=== PATIENT | male | born 1960 | race Hispanic/Latino ===

== ENCOUNTER 2018-03-14 12:20 | Inpatient (IN) | payer BC ==
[2018-03-14] VITALS (37 sets, daily range): BP systolic 114–169; BP diastolic 60–127
[~2018-03-14] VITALS: Ht 165.1 cm; Wt 81.6 kg
[2018-03-14] MEDS ORDERED: LORATADINE10 MG PO (12:56)
[2018-03-14] MEDS ORDERED: CEPHALEXIN500 MG PO (12:56)
[2018-03-14] MEDS ORDERED: DICLOFENAC POTA50 MG PO (12:56)
[2018-03-14] MEDS ORDERED: HEPARIN SOD (PORCINE) 5,000 UNIT/ML VIAL IV ONE (13:15)
[2018-03-14 13:16] LABS: BASOPHILS # (AUTO) 0.1 (0.0-0.1); BASOPHILS % 0.4 % (0.0-1.0); EOSINOPHILS # (AUTO) 0.4 (0.0-0.4); EOSINOPHILS % 2.8 % (0.0-6.0); HEMATOCRIT 41.9 % (38.2-49.6); LYMPHOCYTES # (AUTO) 3.7 (1.0-3.2); LYMPHOCYTES % 27.1 % (18.0-39.1); MEAN CORPUSCULAR HEMOGLOBIN 30.4 pg (28-32); MEAN CORPUSCULAR HGB CONC 33.4 g/dL (31-35); MEAN CORPUSCULAR VOLUME 90.9 fL (81-99); MONOCYTES # (AUTO) 1.4 (0.2-0.8); MONOCYTES % 10.4 % (4.4-11.3); NEUTROPHILS # (AUTO) 8.1 (2.1-6.9); NEUTROPHILS % 58.8 % (38.7-80.0); PLATELET COUNT 87 x10e3/uL (140-360); RED BLOOD COUNT 4.61 x10e6/uL (4.3-5.7)
[2018-03-14] MEDS: HEPARIN 25,000U/0.45% NS 250ML 1,200 UNIT in SODIUM CHLORIDE 0.9% 250ML 0 ML IV SCH (13:24)
[2018-03-14 13:26] LABS: INR 1.01; PROTHROMBIN TIME 12.5 seconds (11.9-14.5)
[2018-03-14 13:27] LABS: PARTIAL THROMBOPLASTIN TIME 26.2 seconds (23.8-35.5)
[2018-03-14] MEDS ORDERED: MORPHINE SULFATE INJ 4 MG/ML INJ IV PRN ×2 (13:30→16:15)
[2018-03-14] MEDS ORDERED: ONDANSETRON HCL INJ 2 MG/ML VIAL IV PRN ×2 (13:30→16:15)
[2018-03-14 13:38] LABS: ALANINE AMINOTRANSFERASE 21 IU/L (0-55); ALBUMIN 3.6 g/dL (3.5-5.0); ALKALINE PHOSPHATASE 75 IU/L (40-150); ANION GAP 15.6 mmol/L (8-16); BLOOD UREA NITROGEN 18 mg/dL (7-26); BUN/CREATININE RATIO 23 (6-25); CALCIUM 9.1 mg/dL (8.4-10.2); CARBON DIOXIDE 20 mmol/L (22-29); CHLORIDE 107 mmol/L (98-107); CREATINE KINASE 74 IU/L (30-200); EST GLOMERULAR FILTRATION RATE > 60 ML/MIN (60-); GLUCOSE 114 mg/dL (74-118); MAGNESIUM 1.8 MG/DL (1.3-2.1); POTASSIUM 3.6 mmol/L (3.5-5.1); SODIUM 139 mmol/L (136-145)
[2018-03-14] MEDS: SODIUM CHLORIDE 0.9% 1000ML 1,000 ML IV SCH ×3 (13:50→20:45)
[2018-03-14 14:27] LABS: BILIRUBIN,URINE NEGATIVE (NEGATIVE); CLARITY,URINE CLEAR (CLEAR); COLOR,URINE YELLOW (YELLOW); KETONES,URINE NEGATIVE (NEGATIVE); LEUKOCYTE ESTERASE ,URINE NEGATIVE (NEGATIVE); NITRITE,URINE NEGATIVE (NEGATIVE); PROTEIN,URINE DIPSTICK NEGATIVE (NEGATIVE); URINE UROBILINOGEN 0.2 mg/dL (0.2 - 1)
[2018-03-14] MEDS ORDERED: LIDOCAINE HCL 2% LOCAL 20 ML VIAL ONE (14:46)
[2018-03-14] MEDS ORDERED: HEPARIN SOD/SOD CHLORIDE 1,000 ML ONE (14:47)
--- NOTE | 2018-03-14 14:47 | Diagnostic Imaging Report ---
EXAMINATION: CHEST SINGLE (PORTABLE) INDICATION: \S\ERMD ORDER \S\[id number] \S\1400 \S\Y COMPARISON: None FINDINGS: AP view TUBES and LINES: None. LUNGS: Lungs are well inflated. Lungs are clear. There is no evidence of pneumonia or pulmonary edema. PLEURA: No pleural effusion or pneumothorax. HEART AND MEDIASTINUM: The cardiomediastinal silhouette is unremarkable.. BONES AND SOFT TISSUES: No acute osseous lesion. Soft tissues are unremarkable. UPPER ABDOMEN: No free air under the diaphragm. IMPRESSION: No acute thoracic abnormality. Signed by: Dr. Sandy Daniel M.D. on 03/14/2018 2:43 PM
[2018-03-14] MEDS ORDERED: MIDAZOLAM HCL 2 MG/2 ML VIAL ONE ×2 (14:57→15:08)
[2018-03-14] MEDS ORDERED: FENTANYL CITRATE/PF 100MCG/2 ML INJ ONE ×2 (14:57→15:08)
[2018-03-14] MEDS ORDERED: IOPAMIDOL 300MG/ML 100 ML INFUS..BTL IV ONE (14:58)
[2018-03-14] MEDS ORDERED: SODIUM CHLORIDE 0.9% 50ML 50 ML ONE (14:59)
[2018-03-14] MEDS ORDERED: ALTEPLASE 50 MG/VIAL (29 MILLION IU) IV ONE ×2 (14:59→16:15)
[2018-03-14] MEDS ORDERED: HEPARIN SOD (PORCINE) 1000 UNIT/ML 30ML ONE (15:26)
[2018-03-14] MEDS ORDERED: ZOLPIDEM TARTRATE 5 MG TAB PO PRN (16:15)
[2018-03-14] MEDS ORDERED: ACETAMINOPHEN 325 MG TAB PO PRN (16:15)
[2018-03-14] MEDS ORDERED: HEPARIN 25,000U/0.45% NS 250ML 1,200 UNIT in SODIUM CHLORIDE 0.9% 250ML 0 ML IV SCH (16:15)
[2018-03-14] MEDS ORDERED: HEPARIN 25,000U/0.45% NS 250ML 0 ML ONE (16:43)
--- NOTE | 2018-03-14 16:47 | Operative Report ---
DATE OF PROCEDURE: March 14, 2018 INDICATIONS: Acute DVT left arm. PROCEDURES PERFORMED: 1. Central venous catheter placement in the left cephalic vein. 2. Second-order catheter placement in the left basilic vein extending into the left superior vena cava. 3. Unilateral upper extremity left venogram. 4. Superior vena cava catheter placement with venogram. 5. Primary thrombectomy of the left brachial and axillary veins. 6. Transcatheter lysis initial day of the left subclavian and axillary veins. COMPLICATIONS: None. RECOMMENDATIONS: Infusion of tPA for the next 24 to 48 hours with assessment of reperfusion. Access was obtained using ultrasound guidance in the left basilic vein. A 6-Burmese sheath was placed for central venous access. Access was obtained the left cephalic vein using ultrasound guidance. A 6-Burmese sheath was placed. The patient received 10,000 units of intravenous heparin. A venogram was performed which demonstrated complete occlusion of the left brachial, axillary and proximal subclavian veins. The lesions were crossed using a Wooly wire, and the catheter was advanced into the left cephalic vein to the superior vena cava. Injection in the superior vena cava demonstrated normal size without evidence of thrombus. Primary thrombectomy off the brachial and subaxillary veins was performed, following which a 20 cm perfusion catheter were secured in place and 10 mg intravenous bolus of heparin through the perfusion catheter was administered. Catheter was secured in place. The patient was transferred to the ICU in stable condition for initiation of transcatheter lysis. Job#: [id number] EV
--- NOTE | 2018-03-14 17:13 | Consultation ---
DATE OF CONSULTATION: March 14, 2018 INDICATIONS: DVT. HISTORY OF PRESENT ILLNESS: Mr. Hall is a healthy 57-year-old gentleman. Works in construction. Has had swelling in his left arm for the last 1 week. He was seen by Dr. White, his primary care physician; found to have an acute DVT involving his subclavian, axillary, and brachial veins. He was sent to the emergency room for admission, as well as evaluation for reperfusion. PAST MEDICAL HISTORY: None. SOCIAL HISTORY: Patient does not smoke. He drinks alcohol on a social basis. NO KNOWN DRUG ALLERGIES. REVIEW OF SYSTEMS: Negative except as dictated in the history of present illness. PHYSICAL EXAMINATION: VITALS: Afebrile. Heart rate 57. Blood pressure is 151/85. O2 sats 98%. CARDIOVASCULAR: Regular rhythm. No murmurs or gallops. LUNGS: Clear to auscultation bilaterally. EXTREMITIES: Left arm is severely swollen. Pulses are felt adequately. No edema. Ultrasound done at an outside facility was reviewed. Labs were reviewed. Chest x-ray shows no acute abnormality. ASSESSMENT: Acute left subclavian/brachial deep vein thrombosis in the left arm. RECOMMENDATIONS: Anticoagulation with heparin. The patient is a candidate for vascular intervention. Thrombectomy, thrombolysis will be performed. Risks, benefits, and alternatives were discussed with the patient as well as his . They are agreeable for the same. I thank Dr. White for this consultation. Job#: [id number] IL
[2018-03-14] MEDS: VANCOMYCIN 1GM/NS 250 ML 250 ML IV SCH (20:44)
[2018-03-14] MEDS: ALTEPLASE RECOMBINANT IV SCH (21:45)
[2018-03-14] MEDS: SODIUM CHLORIDE 0.9% IV SCH (21:45)
[2018-03-15] VITALS (41 sets, daily range): BP systolic 107–150; BP diastolic 37–95
[2018-03-15] MEDS: SODIUM CHLORIDE 0.9% IV SCH ×4 (03:17→18:00)
[2018-03-15] MEDS: ALTEPLASE RECOMBINANT IV SCH ×4 (03:17→18:00)
[2018-03-15] MEDS: SODIUM CHLORIDE 0.9% 1000ML 1,000 ML IV SCH ×3 (03:24→12:01)
[2018-03-15 05:02] LABS: BASOPHILS # (AUTO) 0.1 (0.0-0.1); BASOPHILS % 0.5 % (0.0-1.0); EOSINOPHILS # (AUTO) 0.6 (0.0-0.4); EOSINOPHILS % 5.3 % (0.0-6.0); HEMATOCRIT 38.8 % (38.2-49.6); HEMOGLOBIN 13.2 g/dL (14.0-18.0); LYMPHOCYTES # (AUTO) 3.2 (1.0-3.2); LYMPHOCYTES % 30.1 % (18.0-39.1); MEAN CORPUSCULAR HEMOGLOBIN 31.1 pg (28-32); MEAN CORPUSCULAR VOLUME 91.3 fL (81-99); MONOCYTES # (AUTO) 1.2 (0.2-0.8); MONOCYTES % 11.3 % (4.4-11.3); NEUTROPHILS # (AUTO) 5.6 (2.1-6.9); NEUTROPHILS % 52.3 % (38.7-80.0); PLATELET COUNT 111 x10e3/uL (140-360); RED BLOOD COUNT 4.25 x10e6/uL (4.3-5.7); RED CELL DISTRIBUTION WIDTH 13.2 % (11.7-14.4)
[2018-03-15 05:23] LABS: BLOOD UREA NITROGEN 12 mg/dL (7-26); BUN/CREATININE RATIO 17 (6-25); CALCIUM 8.4 mg/dL (8.4-10.2); CARBON DIOXIDE 20 mmol/L (22-29); CHLORIDE 110 mmol/L (98-107); CREATININE, SERUM 0.71 mg/dL (0.72-1.25); EST GLOMERULAR FILTRATION RATE > 60 ML/MIN (60-); GLUCOSE 95 mg/dL (74-118); SODIUM 139 mmol/L (136-145)
[2018-03-15 05:40] LABS: CHOL/HDL RATIO 4.1 (3.9-4.7)
[2018-03-15 06:39] LABS: ANION GAP 12.3 mmol/L (8-16); POTASSIUM 4.3 mmol/L (3.5-5.1)
[2018-03-15] MEDS ORDERED: HEPARIN 25,000U/0.45% NS 250ML 250 ML ONE (08:06)
[2018-03-15] MEDS: VANCOMYCIN 1GM/NS 250 ML 250 ML IV SCH ×2 (08:07→22:03)
[2018-03-15] MEDS: HEPARIN 25,000U/0.45% NS 250ML 1,200 UNIT in SODIUM CHLORIDE 0.9% 250ML 0 ML IV SCH (08:13)
[2018-03-15] MEDS ORDERED: ASPIRIN 325 MG TAB PO SCH (09:00)
[2018-03-15] MEDS: HYDROCODONE/APAP 5MG-325MG TAB PO PRN (09:30)
--- NOTE | 2018-03-15 17:20 | Progress Note ---
DATE: INTERNAL MEDICINE PROGRESS NOTE SUBJECTIVE: Patient came to the hospital because of right upper extremity swelling. Patient was found to have a left upper extremity DVT. Patient underwent thrombectomy by Dr. Johnson and he is in the ICU right now. REVIEW OF SYSTEMS CARDIOVASCULAR: No chest pain or palpitation. RESPIRATORY: No shortness of breath. No cough. GASTROINTESTINAL: No nausea, no vomiting, no diarrhea. GENITOURINARY: No frequency. No dysuria. ALLERGIES: NOT ALLERGIC TO ANYTHING. PAST MEDICAL HISTORY: Negative for any significant medical condition. SOCIAL HISTORY: He does not smoke, he does not drink. PHYSICAL EXAMINATION VITAL SIGNS: Blood pressure 120/68, temperature 98 degrees, heart rate 60 per minute, respiratory rate is 20 per minute, and oxygen saturation 98%. HEART: Regular rhythm. Normal S1, S2 sounds. LUNGS: Clear bilaterally. ABDOMEN: Soft, no tenderness, no distention, no visceromegaly. EXTREMITIES: Swelling on the left upper extremity with an IV line. LABS: On the BMP; sodium 139, potassium 4.3, chloride 110, CO2 of 20, BUN 12, creatinine 0.71, and glucose 95. CBC showed white blood count 3300, hemoglobin 13.2, hematocrit 38.8, and platelet count 111,000. PT 12.5, PTT 67.1, INR 1.01, AST 12, ALT 21, total bilirubin 0.2, and alkaline phosphatase 75. FINAL IMPRESSION: Deep vein thrombosis on the left humeral vein, status post thrombectomy. PLAN OF TREATMENT: Continue alteplase recombinant at 8.3 mm q.6 hours, vancomycin 1 gram IV twice a day, aspirin 81 mg daily, morphine 4 mg IV q.4 hours as needed, [place] 1 tablet q.6 hours as needed, Zofran 4 mg q.4 hours as needed, Ambien 5 mg at nighttime p.r.n. for sleep, and Tylenol 650 mg IV q.[address] Huggins has been consulted from the hematology point of view, Dr. Ferro, and Dr. Johnson cardiology point of view. I discussed the case with the patient and with the . Time spent 1 hour. Job#: [id number] JONATAN
--- NOTE | 2018-03-15 19:19 | Consultation ---
DATE OF CONSULTATION: CARDIOLOGY CONSULTATION CONSULTING PHYSICIAN: Dr. White. REASON FOR CONSULTATION: Acute left upper extremity thrombus. HISTORY OF PRESENT ILLNESS: Mr. Hall is a 57-year-old male who reports that he noted left upper extremity swelling about a week ago; however, the swelling got worse and the pain increased. For these reasons, he sought care at Dr. White's, who informed him that he had a clot and he needed to go to the hospital. As of yesterday, patient had a left brachioaxillary 100% DVT that he underwent thrombectomy for. He continues and remains in ICU on TPN and heparin. He reports that he does not have any pertinent past medical history, has never had any thrombus before, does not take any medications at home, and has not seen a doctor for any other reason in the past. He does endorse smoking. Denies chest pain, fever, chills, shortness of breath, palpitations, cough, dizziness, or syncope. PAST MEDICAL HISTORY: Nonexistent. SURGICAL HISTORY: None. REVIEW OF SYSTEMS: Negative except as mentioned above. OBJECTIVE VITAL SIGNS: Temperature 98.0, pulse 60, respiratory rate 20, blood pressure 120/68, oxygen saturation 98% on room air. CARDIOVASCULAR MEDICATIONS/ 1. Heparin IV titrate. 2. Aspirin 81 mg p.o. daily. 3. Sodium IV drip. LABS: WBC 10.68, hemoglobin 13.2, hematocrit 38.8, platelets 11. Sodium 139, potassium 4.3, BUN 12, creatinine 0.71, calcium 8.4. Triglycerides 108, cholesterol 207, LDL 135, HDL 50. PTT 72.8. Chest x-ray from yesterday with no acute thoracic abnormalities. PHYSICAL EXAMINATION GENERAL: Alert and oriented x3, does not appear to be in any acute distress. LUNGS: Clear to auscultation throughout. No wheezing. No rhonchi. CARDIOVASCULAR: Regular rate and rhythm. ABDOMEN: Rounded, soft, nontender. EXTREMITIES: Lower extremities, no edema. Upper extremity, left upper extremity 3+ nonpitting edema. Left upper extremity elevated on 3 pillows at this time. IMPRESSION 1. Acute left subclavian brachial deep vein thrombus, status post thrombectomy and thrombolysis yesterday. 2. Smoker. RECOMMENDATIONS: Continue with TPA and heparin at this time. Monitor PTT closely. Continue left upper extremity elevated. We will continue to follow this patient very closely. Dictated by: Kelsey Castrejon NP Job#: [id number] [facility]
--- NOTE | 2018-03-15 22:30 | Consultation ---
DATE OF CONSULTATION: HEMATOLOGY CONSULTATION HISTORY OF PRESENT ILLNESS: This is an otherwise healthy 57-year-old man admitted to [facility] because of left upper arm venous thrombosis. 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 About 8 days ago, he noted that his left arm started getting swollen. He eventually came to [facility] for evaluation. It was clear that patient had a thrombolic event of his upper extremity and that was documented by Dr Johnson who did a venogram on him. Because of the severity of the situation, patient is receiving alteplase for thrombolysis. He is currently residing in ICU. PT/INR was elevated as well due to the use of heparin. PAST MEDICAL AND SURGICAL HISTORY: Non-remarkable. Patient as stated is previously healthy individual. PHYSICAL EXAMINATION GENERAL: A middle-aged male who seems uncomfortable. The left arm is resting on a pillow. HEENT: Unremarkable. NECK: Supple without JVD. CHEST: Lungs clear. HEART: Sound distant. ABDOMEN: Soft. NEUROLOGICAL: Normal. EXTREMITIES: No cyanosis, clubbing, or edema. ASSESSMENT AND PLAN: Left upper arm venous thrombosis. I agree with the plan for thrombolysis. Patient will be a candidate for thrombophilia profile evaluation after this acute episode is resolved and off anticoagulation. Depending which anticoagulation he will receive that will be determined. Job#: [id number] LPA cc:DR LEE
[2018-03-16] VITALS (34 sets, daily range): BP systolic 97–154; BP diastolic 52–97
[2018-03-16] MEDS: ALTEPLASE RECOMBINANT IV SCH ×5 (01:13→22:49)
[2018-03-16] MEDS: SODIUM CHLORIDE 0.9% IV SCH ×5 (01:13→22:49)
--- NOTE | 2018-03-16 01:27 | Discharge Summary ---
CORRIE DEL ROSARIO (00:00) ANNEMARIE STEWART MD Job#: [id number] ЮЛИЯ
--- NOTE | 2018-03-16 02:30 | Consultation ---
DATE OF CONSULTATION: REASON FOR CONSULTATION: Cellulitis of the arm and DVT of the arm. 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 He comes in with redness and swelling of left arm for the last week. He was seen by Dr. White, primary care physician and diagnosed with DVT affecting his subclavian, axillary, and brachial vein. Patient was seen in the emergency room. Patient was started on anticoagulation. There was a concern that there was also component for infection. Infectious disease was consulted. Patient is currently lying in bed comfortably in his intensive care unit. He has no specific complaints at the present time. Family at the bedside. PAST MEDICAL HISTORY: Denies. PAST SURGICAL HISTORY: Denies. ALLERGIES: NKA. SOCIAL HISTORY: There is no smoking, drug abuse, or alcohol abuse. FAMILY HISTORY: Otherwise, noncontributory. REVIEW OF SYSTEMS HEENT: Negative. PULMONARY: Negative. CARDIAC: Negative. : Negative. SKIN: There is no other rash. Except for swelling, he denies any. LABORATORY DATA: Reviewed. White count was 13.8 on admissions, today 10.6 and hemoglobin 13.9. PHYSICAL EXAMINATION GENERAL: He is currently alert and oriented, does not seem to be in acute distress. VITALS: Stable, currently afebrile. HEENT: Not icteric. NECK: Supple. CHEST: Clear. HEART: S1 and S2. No murmur. ABDOMEN: Soft. Obese. EXTREMITIES: He does have erythema and edema of his upper extremity. IMPRESSION AND PLAN: Deep venous thrombosis upper extremity. Agree with the plan of care. There may be a component of infection also, but we will see how he is going to do. Agree with blood cultures. We will follow on that. Further recommendations to follow. Job#: [id number] VAS
[2018-03-16] MEDS: SODIUM CHLORIDE 0.9% 1000ML 1,000 ML IV SCH ×5 (05:33→20:19)
[2018-03-16] MEDS: LORATADINE 10 MG TAB PO SCH (09:30)
[2018-03-16] MEDS: ASPIRIN 81 MG ENTERIC COATED PO SCH (09:30)
[2018-03-16] MEDS: VANCOMYCIN 1GM/NS 250 ML 250 ML IV SCH ×2 (09:30→20:18)
--- NOTE | 2018-03-16 12:58 | Progress Note ---
DATE: INTERNAL MEDICINE PROGRESS NOTE SUBJECTIVE: Patient is doing better. The swelling is less. The pain is less on the right arm. PHYSICAL EXAM VITAL SIGNS: Blood pressure is 136/78, temperature 97.2, heart rate 61 per minute, respiratory rate 19 per minute, and oxygen is 97%. HEART: Regular rhythm. Normal S1, S2 sounds. LUNGS: Clear bilaterally. ABDOMEN: Soft. EXTREMITIES: Showed a swelling on the left upper extremity. FINAL IMPRESSION: Deep venous thrombosis of the left arm. PLAN OF TREATMENT: Continue with tPA. He is also taking vancomycin 1 gram IV twice a day. He is on [place] 1 tablet q.6 hours as needed for pain, morphine 4 mg IV q.4 hours for severe pain, Zofran 4 mg IV q.4 hours as needed for vomiting, Ambien 5 mg at night p.r.n. for sleep, Claritin 10 mg daily, Tylenol 650 mg q.6 hours, aspirin 81 mg daily. On the BMP; sodium 139, potassium 4.3, chloride 110, CO2 20, BUN 12, creatinine 0.71, and glucose 95. CBC showed white blood count 10.6, hemoglobin 13.2, hematocrit 38.8, and platelet count 111,000. PT 12.5, INR 1.01, PTT 73.4, AST 12, ALT 21, total bilirubin 0.4, alkaline phosphatase 75. Patient will remain in the ICU. Discussed the case with the patient. Medications have been reviewed. Labs have been reviewed. Job#: [id number] JONATAN
[2018-03-16] MEDS: HEPARIN 25,000U/0.45% NS 250ML 1,200 UNIT in SODIUM CHLORIDE 0.9% 250ML 0 ML IV SCH ×2 (13:15→17:20)
[2018-03-16] MEDS: HYDROCODONE/APAP 5MG-325MG TAB PO PRN ×2 (13:54→22:16)
--- NOTE | 2018-03-16 15:46 | Progress Note ---
DATE: CARDIOLOGY PROGRESS NOTE SUBJECTIVE: Patient is without any complaints this morning. He does state that his left upper extremity swelling has much improved, which is great. Denies any other complaints. OBJECTIVE VITAL SIGNS: Temperature not recorded, pulse 61, respiratory rate 19, blood pressure 136/78, oxygen saturation 97% on room air. GENERAL: Alert and oriented x3, resting comfortably in bed. Does not appear to be in any acute distress. LUNGS: Clear to auscultation throughout. No wheezing. No rhonchi or crackles. CARDIOVASCULAR: Regular rate and rhythm. No murmurs or gallops noted. ABDOMEN: Soft, nontender. EXTREMITIES: Lower extremity, no edema. Upper extremity, left upper extremity 2+ nonpitting edema, elevated on pillows at this time. CARDIOVASCULAR MEDICATIONS 1. TPA continuous drip. 2. Heparin continuous drip. 3. Aspirin 81 mg p.o. daily. LABS: PTT 73.4. IMPRESSION 1. Acute left subclavian and brachial deep venous thrombosis, status post thrombectomy and thrombolysis yesterday. 2. Smoker. RECOMMENDATIONS: Continue with TPA and heparin. Monitor PTT closely. Left upper extremity should remain elevated. Plan for angioplasty tomorrow. We will continue to follow this patient very closely. Dictated by: Kelsey Castrejon NP Job#: [id number] CAROLIN
[2018-03-17] VITALS (43 sets, daily range): BP systolic 110–163; BP diastolic 64–97
[2018-03-17] MEDS: ALTEPLASE RECOMBINANT IV SCH ×3 (05:03→22:00)
[2018-03-17] MEDS: SODIUM CHLORIDE 0.9% IV SCH ×3 (05:03→22:00)
[2018-03-17] MEDS: ASPIRIN 81 MG ENTERIC COATED PO SCH ×2 (09:00→14:56)
[2018-03-17] MEDS: LORATADINE 10 MG TAB PO SCH ×2 (09:00→14:56)
[2018-03-17] MEDS: VANCOMYCIN 1GM/NS 250 ML 250 ML IV SCH ×2 (09:06→20:47)
[2018-03-17] MEDS: SODIUM CHLORIDE 0.9% 1000ML 1,000 ML IV SCH (10:00)
--- NOTE | 2018-03-17 10:00 | Progress Note ---
DATE: March 17, 2018 SUBJECTIVE: Mr. Hall is a 57-year-old man who denies any prior medical history except that he smokes. He came to the clinic complaining of left upper extremity edema. He was sent for a venous Doppler that showed thrombosis of his subclavian, so he was sent to [facility] for admission. He was seen by Dr. Johnson. He underwent thrombectomy. He was admitted to ICU. His right arm was also elevated, so he was seen by infectious disease as well as hematology/oncologist consult was requested to evaluate the etiology of this DVT. PHYSICAL EXAMINATION GENERAL: Today, he is awake and alert. He is feeling better. VITAL SIGNS: Temperature 98.5, blood pressure is 130/64. HEART: Regular rate. LUNGS: Clear to auscultation. EXTREMITIES: The left upper extremity is still swollen. BLOOD WORK: Potassium is 4.3, creatinine is 0.71, glucose is 95. White count went down to 10.6, hemoglobin 13.2, hematocrit 38.8. PTT is elevated because the patient is on heparin drip. ASSESSMENT 1. Left upper extremity deep vein thrombosis, status post thrombectomy. 2. Left upper extremity cellulitis. 3. Leukocytosis. 4. Tobacco abuse. PLAN: At present time, continue IV antibiotics. Continue heparin drip. He is going to go for angioplasty today and he is on t-PA and heparin. We will continue to monitor PT/PTT closely. All these were discussed with the patient and at bedside. I spent more than 35 minutes examining the patient, reviewing weekend events, lab results, x-rays and discussing plan of care with the patient and . Job#: [id number]
--- NOTE | 2018-03-17 12:06 | Progress Note ---
DATE: March 17, 2018 CARDIOLOGY PROGRESS NOTE SUBJECTIVE: The patient denies chest pain or shortness of breath. He continues to have oozing from his left upper extremity catheterization sites. OBJECTIVE VITAL SIGNS: Temperature 98.5 degrees, pulse 54, respiratory rate 16, blood pressure 130/64, oxygen saturation 97% on room air. GENERAL: Awake, alert, in no acute distress. LUNGS: Clear to auscultation bilaterally. No wheezes or crackles. CARDIOVASCULAR: Normal rate. Regular rhythm. No murmur. Normal S1 and S2. ABDOMEN: Soft, nontender. EXTREMITIES: No edema bilateral lower extremities. Left upper extremity continues to have 2+ pitting edema. Oozing is noted on the upper arm dressing with clean dressing on the left forearm. CARDIAC MEDICATIONS 1. Alteplase infusion. 2. Heparin drip. 3. Aspirin 81 mg p.o. daily. LABS: Pending. Cholesterol 207, triglycerides 108, LDL 135, and HDL 50. TELEMETRY: Normal sinus rhythm. IMPRESSION 1. Acute left subclavian and brachial deep vein thrombosis, status post thrombectomy and thrombolysis. 2. Tobacco use. RECOMMENDATIONS: Patient is n.p.o. for angioplasty of the left upper extremity later today. Continue tPA and heparin drip for now. Continue aspirin. Add atorvastatin given elevated LDL. Further evaluation regarding etiology of patient's left upper extremity DVT per hematology. He will need evaluation for hypercoagulable state. Antibiotics per infectious disease. Thank you for this consult. We will continue to follow. Job#: [id number] JONATAN
[2018-03-17 12:18] LABS: BASOPHILS % 0.4 % (0.0-1.0); EOSINOPHILS # (AUTO) 0.5 (0.0-0.4); EOSINOPHILS % 4.3 % (0.0-6.0); HEMATOCRIT 35.6 % (38.2-49.6); HEMOGLOBIN 11.9 g/dL (14.0-18.0); LYMPHOCYTES # (AUTO) 2.9 (1.0-3.2); LYMPHOCYTES % 26.4 % (18.0-39.1); MEAN CORPUSCULAR HEMOGLOBIN 30.2 pg (28-32); MEAN CORPUSCULAR HGB CONC 33.4 g/dL (31-35); MEAN CORPUSCULAR VOLUME 90.4 fL (81-99); MONOCYTES # (AUTO) 1.1 (0.2-0.8); MONOCYTES % 10.1 % (4.4-11.3); NEUTROPHILS # (AUTO) 6.3 (2.1-6.9); NEUTROPHILS % 58.4 % (38.7-80.0); PLATELET COUNT 73 x10e3/uL (140-360); RED BLOOD COUNT 3.94 x10e6/uL (4.3-5.7); RED CELL DISTRIBUTION WIDTH 12.4 % (11.7-14.4)
[2018-03-17 12:33] LABS: ANION GAP 12.6 mmol/L (8-16); BLOOD UREA NITROGEN 8 mg/dL (7-26); BUN/CREATININE RATIO 11 (6-25); CALCIUM 8.4 mg/dL (8.4-10.2); CARBON DIOXIDE 21 mmol/L (22-29); CHLORIDE 109 mmol/L (98-107); CREATININE, SERUM 0.71 mg/dL (0.72-1.25); EST GLOMERULAR FILTRATION RATE > 60 ML/MIN (60-); GLUCOSE 89 mg/dL (74-118); POTASSIUM 3.6 mmol/L (3.5-5.1); SODIUM 139 mmol/L (136-145)
[2018-03-17] MEDS ORDERED: ATORVASTATIN 20 MG TAB PO SCH (21:00)
[2018-03-18] VITALS (26 sets, daily range): BP systolic 109–147; BP diastolic 62–103
[2018-03-18] MEDS: ALTEPLASE RECOMBINANT IV SCH ×3 (01:29→12:08)
[2018-03-18] MEDS: SODIUM CHLORIDE 0.9% IV SCH ×3 (01:29→12:08)
[2018-03-18 04:43] LABS: BASOPHILS % 0.2 % (0.0-1.0); EOSINOPHILS # (AUTO) 0.5 (0.0-0.4); EOSINOPHILS % 3.9 % (0.0-6.0); HEMATOCRIT 36.8 % (38.2-49.6); HEMOGLOBIN 12.3 g/dL (14.0-18.0); LYMPHOCYTES # (AUTO) 2.8 (1.0-3.2); LYMPHOCYTES % 23.2 % (18.0-39.1); MEAN CORPUSCULAR HEMOGLOBIN 30.1 pg (28-32); MEAN CORPUSCULAR HGB CONC 33.4 g/dL (31-35); MEAN CORPUSCULAR VOLUME 90.2 fL (81-99); MONOCYTES # (AUTO) 1.1 (0.2-0.8); MONOCYTES % 9.5 % (4.4-11.3); NEUTROPHILS # (AUTO) 7.6 (2.1-6.9); NEUTROPHILS % 62.9 % (38.7-80.0); PLATELET COUNT 76 x10e3/uL (140-360); RED BLOOD COUNT 4.08 x10e6/uL (4.3-5.7); RED CELL DISTRIBUTION WIDTH 12.5 % (11.7-14.4)
[2018-03-18] MEDS: SODIUM CHLORIDE 0.9% 1000ML 1,000 ML IV SCH ×2 (06:10→10:01)
[2018-03-18] MEDS ORDERED: LIDOCAINE HCL 2% LOCAL 20 ML VIAL ONE (07:15)
[2018-03-18] MEDS ORDERED: IOPAMIDOL 370 MG/ML 200 ML INFUS..BTL INJ ONE (07:15)
[2018-03-18] MEDS ORDERED: HEPARIN SOD/SOD CHLORIDE 1,000 ML ONE (07:15)
[2018-03-18] MEDS ORDERED: MIDAZOLAM HCL 2 MG/2 ML VIAL ONE ×2 (07:35→08:45)
[2018-03-18] MEDS ORDERED: FENTANYL CITRATE/PF 100MCG/2 ML INJ ONE (07:35)
[2018-03-18] MEDS ORDERED: SODIUM CHLORIDE 0.9% 1000ML 1,000 ML ONE (07:35)
[2018-03-18] MEDS ORDERED: HEPARIN SOD (PORCINE) 1000 UNIT/ML 30ML ONE (08:41)
--- NOTE | 2018-03-18 09:39 | Progress Note ---
DATE: March 18, 2018 Mr. Hall is a 57-year-old man who denies any prior medical history except that he smokes. Came to the clinic complaining of left upper extremity edema. Venous Doppler showed thrombosis of the subclavian vein. The patient was sent to [facility] for admission. He underwent thrombectomy and admitted to ICU. Hem/oncologist consult was requested to evaluate coagulopathy state and rule out any other etiology. PHYSICAL EXAMINATION GENERAL: He is awake and alert. VITALS: Temperature is 98.6, blood pressure 147/82. HEART: Regular rate. LUNGS: Clear to auscultation. EXTREMITIES: Left upper extremity still edematous. BLOOD WORK: White count is 12.02, hemoglobin 12.3. Potassium 3.6, creatinine 0.71, glucose 89. One blood culture was negative. Urine culture is negative. We have another culture that is pending. ASSESSMENT AND PLAN 1. Left upper extremity deep venous thrombosis: Status post thrombectomy. 2. Left upper extremity cellulitis. 3. Leukocytosis. 4. Tobacco abuse. PLAN: At the present time, is to continue IV antibiotics. Monitor white count. The patient on tPA and heparin. He is going to go for an angioplasty today. He did not go yesterday. I spent more than 35 minutes examining the patient, reviewing weekend and overnight events, lab results, x-rays, and discussing plan of care. Job#: [id number] GURU
--- NOTE | 2018-03-18 10:05 | Progress Note ---
DATE: March 18, 2018 CARDIOLOGY PROGRESS NOTE Mr. Hall has much diminished swelling in his left arm. He is scheduled for angiography today. PHYSICAL EXAMINATION VITALS: Afebrile, heart rate is 78, blood pressure 128/70. CARDIOVASCULAR: Regular rhythm. No murmurs or gallops. LUNGS: Clear to auscultation bilaterally. EXTREMITIES: Left arm swelling is present. ABDOMEN: Soft. LABS: Reviewed. WBC count is now 12,000. However, the patient has been on tPA. ASSESSMENT 1. Acute left subclavian and axillary deep venous thrombosis. 2. Mariia's shoulder syndrome. RECOMMENDATIONS: Definitive thrombectomy including angioplasty of the left arm venous system will be performed. The risks, benefits and alternatives of this procedure were discussed with the patient. Heparin and tPA have been discontinued. Job#: [id number] GURU
[2018-03-18] MEDS ORDERED: DAPTOMYCIN 500 MG in SODIUM CHLORIDE 0.9% 100 ML IV SCH (10:30)
--- NOTE | 2018-03-18 11:07 | Operative Report ---
DATE OF PROCEDURE: March 18, 2018 INDICATIONS: DVT. PROCEDURES PERFORMED 1. Removal of lysis catheter. 2. Primary thrombectomy of left subclavian and axillary veins. 3. Angioplasty of the left subclavian, brachial, and axillary veins. COMPLICATIONS: None. BLOOD LOSS: 20 mL. RECOMMENDATIONS: Resumption of anticoagulation with 10 mg of Eliquis twice a day with reassessment of reperfusion in the next 24 hours. Existing sheaths in the cephalic and basilic veins were used to perform angiography of the left axillary, brachial, and subclavian veins with partial resolution of the thrombus. Primary thrombectomy with aspiration was performed of the left subclavian and axillary veins followed by balloon angioplasty ranging from 6 to 12 mm with excellent end result with prompt filling of the left subclavian, right atrium, and superior vena cava. The sheath was secured in place. Patient was transferred to ICU in stable condition. Job#: [id number] MARYANNE
[2018-03-18] MEDS ORDERED: NITROGLYCERIN/D5W 200 MCG/ML 0 ML ONE (11:30)
[2018-03-18] MEDS: HEPARIN 25,000U/0.45% NS 250ML 1,200 UNIT in SODIUM CHLORIDE 0.9% 250ML 0 ML IV SCH (12:08)
[2018-03-18] MEDS ORDERED: APIXABAN 5 MG TABLET PO SCH (17:00)
[2018-03-18] MEDS ORDERED: XARELTO10 MG (17:59)
== END 2018-03-18 18:35 | disposition home or self-care (01) | DRG 271 ==
LOC: ER 12:20 → CATH LAB 13:58 → PACU V 13:59 → ICU 17:38
PROVIDERS: ADMIT Internal Medicine; ATTEND Internal Medicine
PROC: 05C83ZZ Extirpation of Matter from Left Axillary Vein, Percutaneous Approach (ICD-10-PCS; 2018-03-14)
PROC: 05C63ZZ Extirpation of Matter from Left Subclavian Vein, Percutaneous Approach (ICD-10-PCS; 2018-03-14)
PROC: 057F3ZZ Dilation of Left Cephalic Vein, Percutaneous Approach (ICD-10-PCS; 2018-03-14)
PROC: 057C3ZZ Dilation of Left Basilic Vein, Percutaneous Approach (ICD-10-PCS; 2018-03-14)
PROC: B5181ZZ Fluoroscopy of Superior Vena Cava using Low Osmolar Contrast (ICD-10-PCS; 2018-03-14)
PROC: B51NZZZ Fluoroscopy of Left Upper Extremity Veins (ICD-10-PCS; 2018-03-14)
PROC: 3E043GC Introduction of Other Therapeutic Substance into Central Vein, Percutaneous Approach (ICD-10-PCS; 2018-03-14)
PROC: 3E04317 Introduction of Other Thrombolytic into Central Vein, Percutaneous Approach (ICD-10-PCS; 2018-03-14)
PROC: 02HV33Z Insertion of Infusion Device into Superior Vena Cava, Percutaneous Approach (ICD-10-PCS; 2018-03-14)
PROC: 05C83ZZ Extirpation of Matter from Left Axillary Vein, Percutaneous Approach (ICD-10-PCS; principal; 2018-03-18)
PROC: 05C63ZZ Extirpation of Matter from Left Subclavian Vein, Percutaneous Approach (ICD-10-PCS; 2018-03-18)
PROC: 057A3ZZ Dilation of Left Brachial Vein, Percutaneous Approach (ICD-10-PCS; 2018-03-18)
PROC: 05763ZZ Dilation of Left Subclavian Vein, Percutaneous Approach (ICD-10-PCS; 2018-03-18)
PROC: 05783DZ Dilation of Left Axillary Vein with Intraluminal Device, Percutaneous Approach (ICD-10-PCS; 2018-03-18)
PROC: B5171ZZ Fluoroscopy of Left Subclavian Vein using Low Osmolar Contrast (ICD-10-PCS; 2018-03-18)
PROC: B51N1ZZ Fluoroscopy of Left Upper Extremity Veins using Low Osmolar Contrast (ICD-10-PCS; 2018-03-18)
DX: I82.B12 Acute embolism and thrombosis of left subclavian vein (principal); L03.114 Cellulitis of left upper limb; F17.210 Nicotine dependence, cigarettes, uncomplicated; I82.A12 Acute embolism and thrombosis of left axillary vein; D69.59 Other secondary thrombocytopenia; I82.890 Acute embolism and thrombosis of other specified veins; Z79.01 Long term (current) use of anticoagulants; M89.8X1 Other specified disorders of bone, shoulder; D72.829 Elevated white blood cell count, unspecified
CPT/HCPCS: 36010; 36415; 37187; 37211; 37213; 37248; 71045; 75710; 75820; 77002; 80048; 80053; 80061; 81001; 82550; 82553; 83605; 83735; 84484; 85025; 85610; 85730; 87040; 87071; 87086; 87205; 93005; 93971; 96365; 99285; C1725; C1769; J1644; J2001; J2250; J2997; J3370; J7030; J7050; Q9967

== ENCOUNTER 2024-02-13 05:33 | Observation (INO) | payer OTHER ==
[~2024-02-13] VITALS: Ht 167.6 cm; Wt 84.4 kg
[~2024-02-13 05:33] MED LIST: ASPIRIN81 MG PO; CEPHALEXIN500 MG PO; DICLOFENAC POTA50 MG PO; LORATADINE10 MG PO; OMEPRAZOLE40 MG PO; TYLENOL EXTRA500 MG PO; XARELTO10 MG
[2024-02-13] MEDS ORDERED: LACTATED RINGER'S 1,000 ML ONE (06:17)
[2024-02-13] MEDS ORDERED: EPINEPHRINE HCL 1:1000 1ML 1 MG/ML AMP ONE (06:52)
[2024-02-13] MEDS ORDERED: SODIUM CHLORIDE 0.9% INJ 10 ML VIAL ONE ×2 (06:53→06:59)
[2024-02-13] MEDS: HYDROCODONE/APAP 5MG-325MG TAB ONE (10:20)
[2024-02-13 10:30] VITALS: BP 138/78; PULSE 63; RESP 18; TEMP 97.9; O2SAT 96
[2024-02-13] MEDS ORDERED: EYE LUBRICANT OPTH OINT 3.5GM TUBE OP ONE (10:46)
[2024-02-13] MEDS ORDERED: LIDOCAINE HCL 2% LOCAL INJ 5 ML SDV VIAL INJ ONE (10:46)
[2024-02-13] MEDS ORDERED: SUCCINYLCHOLINE CHLORIDE 20 MG/ML 10ML VIAL ONE (10:46)
[2024-02-13] MEDS ORDERED: ROCURONIUM BROMIDE 10 MG/ML 5ML VIAL IV ONE (10:46)
[2024-02-13] MEDS ORDERED: SODIUM CHLORIDE 0.9% INJ 100 ML BAG ONE (10:46)
[2024-02-13] MEDS ORDERED: FAMOTIDINE 20 MG/2 ML VIAL IV ONE (10:46)
[2024-02-13] MEDS ORDERED: PROPOFOL IV EMULSION 10 MG/ML 20 ML VIAL ONE (10:46)
[2024-02-13] MEDS ORDERED: ONDANSETRON HCL INJ 2MG/ML 2ML 2 MG/ML VIAL ONE (10:46)
[2024-02-13] MEDS ORDERED: ACETAMINOPHEN 1000 MG/100 ML IV ONE (10:46)
[2024-02-13] MEDS ORDERED: SEVOFLURANE INHAL SOLN 250 ML PEN BTL ONE (10:46)
[2024-02-13] MEDS ORDERED: DEXMEDETOMIDINE HCL 200 MCG/2 ML VIAL ONE (10:46)
[2024-02-13] MEDS ORDERED: DEXAMETHASONE SOD PHOS INJ 4 MG/ML SDV ONE (10:46)
[2024-02-13] MEDS ORDERED: ONDANSETRON HCL INJ 2MG/ML 2ML 2 MG/ML VIAL IV PRN (11:30)
[2024-02-13] MEDS ORDERED: SODIUM CHLORIDE FLUSH 10 ML SYR INJ PRN (11:30)
[2024-02-13] MEDS: D5.45%NS/KCL 20MEQ 1,000 ML IV SCH (11:30)
[2024-02-13 11:43] VITALS: BP 138/76; PULSE 63; RESP 18; TEMP 97.9; O2SAT 96
[2024-02-13] MEDS ORDERED: FENTANYL CITRATE/PF 100MCG/2 ML INJ ONE (13:03)
[2024-02-13] MEDS ORDERED: MIDAZOLAM HCL 5 MG/ML VIAL ONE (13:03)
[2024-02-13 16:02] VITALS: BP 124/63; PULSE 62; RESP 16; TEMP 97.4; O2SAT 98
[2024-02-13] MEDS: HYDROCODONE/APAP 5MG-325MG TAB PO PRN (17:25)
[2024-02-13 19:24] VITALS: BP 131/69; PULSE 59; RESP 18; TEMP 97.9; O2SAT 96
[2024-02-13 21:00] VITALS: BP 142/76; PULSE 58; RESP 18; TEMP 98.8; O2SAT 97
[2024-02-13 23:32] VITALS: BP 142/76; PULSE 58; RESP 18; TEMP 98.8; O2SAT 97
[2024-02-14 04:00] VITALS: BP 128/73; PULSE 59; RESP 18; TEMP 97.5; O2SAT 96
[2024-02-14 07:34] VITALS: BP 131/74; PULSE 54; RESP 18; TEMP 97.6; O2SAT 97
[2024-02-14 08:01] VITALS: BP 131/74; PULSE 54; RESP 18; TEMP 97.6; O2SAT 97
[2024-02-14] MEDS ORDERED: ONDANSETRON HCL 4 MG ORAL DISINTEGRATING TAB PO PRN (08:45)
== END 2024-02-14 09:18 | disposition home or self-care (01) ==
LOC: OR 05:33 → PACU V 09:32 → MED/SURG 10:36
PROVIDERS: ADMIT Otolaryngology; ATTEND Otolaryngology
DX: D11.0 Benign neoplasm of parotid gland (principal); K21.9 Gastro-esophageal reflux disease without esophagitis; E78.00 Pure hypercholesterolemia, unspecified; Z86.718 Personal history of other venous thrombosis and embolism; Z87.891 Personal history of nicotine dependence
CPT/HCPCS: 42415; 88307; 88331; 93005; C1713; G0378 ×2; J0131; J0171; J0330; J0690 ×2; J1100; J2001; J2250; J2405; J2704; J3010; J7050; J7121; 88304